=== PATIENT | male | born 1965 | race Caucasian/White ===

== ENCOUNTER 2018-08-04 12:22 | Emergency (ER) | payer OTHER ==
[~2018-08-04] VITALS: Ht 180.3 cm; Wt 90.9 kg
[2018-08-04 12:32] VITALS: BP 133/102; TEMP 98.5
[2018-08-04] MEDS ORDERED: CEPHALEXIN500 M1 PO (14:11)
[2018-08-04 14:50] VITALS: PULSE 76
== END 2018-08-04 14:50 | disposition home or self-care (01) ==
LOC: COL.ER 12:22
DX: S69.91XA Unspecified injury of right wrist, hand and finger(s), initial encounter (principal); Z23 Encounter for immunization; W45.0XXA Nail entering through skin, initial encounter

== ENCOUNTER 2019-02-15 10:06 | Day surgery (SDC) | payer OTHER ==
[~2019-02-15] VITALS: Ht 180.3 cm; Wt 90.0 kg
[~2019-02-15 10:06] MED LIST: CEPHALEXIN500 M1 PO
[2019-02-15 10:33] VITALS: BP 138/105; PULSE 93; TEMP 97.6
[2019-02-15] MEDS ORDERED: NIZORAL SHAMPO120 M1 TP (10:40)
[2019-02-15] MEDS ORDERED: ADVIL200 MG PO (10:41)
[2019-02-15] MEDS ORDERED: ASPIRIN E.C. 8181 MG PO (10:42)
[2019-02-15] MEDS ORDERED: TYLENOL 500MG500 MG PO (10:42)
--- NOTE | 2019-02-15 10:43 | NUR ---
TO RM AT 1015- CALL LIGHT IN REACH WILL CAREER TECHNOLOGY TEACHER AFTER PROCEDURE
[2019-02-15 11:35] VITALS: BP 124/89; PULSE 80; TEMP 98
[2019-02-15 11:50] VITALS: BP 113/74; PULSE 69
[2019-02-15 12:05] VITALS: BP 120/74; PULSE 74
[2019-02-15 12:20] VITALS: BP 115/69; PULSE 74
--- NOTE | 2019-02-15 13:10 | NUR ---
Pt returned at 1135 via cart to [facility]. Ambulated with SBA to recliner in bay. Pts VSS-see flowsheet. Pt tolerated ice chips, then jello and a sprite. IV removed and pressure dressing applied to right wrist IV site. Discharge teaching completed with pt and , verbalized understanding. Taken via wheelchair to private vehicle with driving.
== END 2019-02-15 13:10 | disposition home or self-care (01) ==
LOC: SDCO 10:06
DX: Z12.11 Encounter for screening for malignant neoplasm of colon (principal)
CPT/HCPCS: J2250; J2405; J3010; J7030

== ENCOUNTER 2021-10-25 15:06 | Emergency (ER) | payer OTHER ==
[~2021-10-25] VITALS: Ht 27.9 cm; Wt 95.5 kg
[~2021-10-25 15:06] MED LIST changes: +ADVIL200 MG PO; +ASPIRIN E.C. 8181 MG PO; +NIZORAL SHAMPO120 M1 TP; +TYLENOL 500MG500 MG PO
[2021-10-25] MEDS ORDERED: MEDROL 4MG DOSPA4 MG PO (15:38)
[2021-10-25] MEDS ORDERED: FLEXERIL 1010 MG/TAB PO (15:38)
[2021-10-25 16:07] VITALS: BP 141/79; PULSE 98; TEMP 98.3
== END 2021-10-25 16:08 | disposition home or self-care (01) ==
LOC: COL.ER 15:06
DX: M54.50 Low back pain, unspecified (principal)
CPT/HCPCS: J1885